=== PATIENT | female | born 1990 | race Caucasian/White ===

== ENCOUNTER 2017-03-05 07:56 | Day surgery (SDC) | payer BC, MEDICAID ==
[2017-03-01 10:22] VITALS: BMI 35.4
[~2017-03-05 07:56] MED LIST: LACTATED RINGERS 1,000 ML IV SCH; LIDOCAINE 1% 20 ML VIAL (10MG/ML) FOR IV START INTRADERMA PRN
[2017-03-05 08:33] VITALS: TEMP 99.6
[2017-03-05] MEDS ORDERED: LIDOCAINE 1% INJ 10MG/ML (20 ML MDV) ONE (08:55)
[2017-03-05] MEDS ORDERED: fentaNYL (PF) 50 MCG/ML 2 ML AMP ONE (08:55)
[2017-03-05] MEDS ORDERED: PROPOFOL 10 MG/ML 20 ML VIAL IV ONE (08:55)
--- NOTE | 2017-03-05 09:23 | P.PCN ---
Date of Procedure: 03/05/17 Preoperative Diagnosis: blood per rectum Postoperative Diagnosis: Internal hemorrhoids/possible rectal polypoid lesion Procedure(s) Performed: Colonoscopy Anesthesia: MAC Surgeon: Cassandra Acosta Estimated Blood Loss (ml): 0 IV fluids (ml): 500 Pathology: none sent Condition: stable Disposition: PACU Indications for Procedure: Blood per rectum Operative Findings: Large internal hemorrhoids/possible rectal polyp anterior location, external anterior and posterior skin tags rectal Description of Procedure: Patient was taken to the endoscopy suite and following sedation rectal exam was performed. Patient was noted to have anterior and posterior external skin tags. On rectal examination a polypoid-like lesion was noted to palpation. The colonoscope was introduced was passed through the anus into the rectum. Was passed through the sigmoid colon up to the splenic flexure transverse colon hepatic flexure right colon down to the area of the cecum. Circumferential observation mucosa did not reveal any lesions of concern in the cecum or right colon. No lesions of concern were noted in the transverse colon. As the scope was withdrawn no lesions of concern were noted in the left colon or sigmoid colon. The scope was brought down into the rectum where it was retroflexed. What appeared to be large internal hemorrhoids were identified. The scope was withdrawn and plan rectal examination noted that the area of concern was in the anterior perianal area. This was not felt to be conducive to removal endoscopically. Approximately 6 minutes were taken to withdraw the scope from the cecum to the rectum. Impression/plan: 1. Anterior and posterior external skin perianal skin tags 2. Anterior polypoid perianal area Plan: 1. Plan on removal in the operating room of the area of concern/ hemorrhoidectomy possible polypoid lesion removal
--- NOTE | 2017-03-05 09:24 | P.DS ---
Providers Attending physician: Cassandra Acosta Primary care physician: Malinda Bob MD Plan - Discharge Summary Discharge Medication List Biotin 5,000 mcg PO DAILY 03/01/17 [History] Cyanocobalamin [Vitamin B-12] 500 mcg PO DAILY 03/01/17 [History] buPROPion HCL [Wellbutrin SR] 150 mg PO DAILY 03/01/17 [History] Follow up Appointment(s)/Referral(s): Cassandra Acosta MD [STAFF PHYSICIAN] - 1 Week Patient Instructions/Handouts: *Surgery [facility] - (Anesthesia) Endoscopy Discharge Instructions, Colonoscopy (DC), Diverticulosis (DC), Diverticulosis Diet (GEN) Activity/Diet/Wound Care/Special Instructions: REST TODAY, NO DRIVING, DRINK LOTS OF FLUIDS Discharge Disposition: HOME SELF-CARE
[2017-03-05 10:04] VITALS: BP 121/71; PULSE 72; RESP 18
== END 2017-03-05 10:08 | disposition home or self-care (01) ==
LOC: ORWHC2ENDO 07:56
PROVIDERS: ATTEND Surgery
DX: Z12.11 Encounter for screening for malignant neoplasm of colon (principal); K64.8 Other hemorrhoids; K64.4 Residual hemorrhoidal skin tags; F32.9 Major depressive disorder, single episode, unspecified; Z79.899 Other long term (current) drug therapy; Z88.0 Allergy status to penicillin; Z87.891 Personal history of nicotine dependence
CPT/HCPCS: 81025; J2001; J3010; J2704; G0121

== ENCOUNTER 2017-03-26 10:03 | Observation (INO) | payer MEDICAID ==
[2017-03-21 14:31] VITALS: BMI 35.4
[~2017-03-26 10:03] MED LIST changes: +DEXAMETHASONE SOD PHOSPHATE 10 MG/ML 1 ML VIAL IV ONE; +HEPARIN SODIUM,PORCINE 5,000 UNIT/ML 1 ML VIAL SQ ONE; -LIDOCAINE 1% 20 ML VIAL (10MG/ML) FOR IV START INTRADERMA PRN; +MIDAZOLAM 2 MG/2 ML VIAL IV PRN; +Pre Op ABX Message 1 EACH MISC MISCELLANE ONE; +SCOPOLAMINE 1.5MG/72HR PATCH TRANSDERM ONE
[2017-03-26 10:19] VITALS: RESP 16
[2017-03-26] MEDS ORDERED: NA PHOS,M-B/NA PHOS,DI-BA 133 ML ENEMA RECTAL ONE (10:30)
[2017-03-26] MEDS: ONDANSETRON 4 MG/2 ML VIAL IVP ONE ×2 (10:54→13:21)
[2017-03-26] MEDS ORDERED: MIDAZOLAM 2 MG/2 ML VIAL ONE (11:14)
[2017-03-26] MEDS ORDERED: PROPOFOL 10 MG/ML 20 ML VIAL IV ONE (11:14)
[2017-03-26] MEDS ORDERED: SUCCINYLCHOLINE CHLORIDE 100 MG/5 ML SYR IV ONE (11:14)
[2017-03-26] MEDS ORDERED: fentaNYL (PF) 50 MCG/ML 2 ML AMP ONE (11:14)
[2017-03-26] MEDS ORDERED: LIDOCAINE 1% INJ 10MG/ML (20 ML MDV) ONE (11:14)
[2017-03-26] MEDS ORDERED: SODIUM CHLORIDE 0.9% 50 ML with CLINDAMYCIN 600 MG IV ONE ×2 (11:29)
[2017-03-26] MEDS ORDERED: LACTATED RINGERS 1,000 ML IV ONE ×3 (11:54→14:52)
--- NOTE | 2017-03-26 12:04 | P.OP ---
Date of Procedure: 03/26/17 Preoperative Diagnosis: Symptomatic hemorrhoids with prominent Anal polyps Postoperative Diagnosis: Same Procedure(s) Performed: Hemorrhoidectomy. Of diana anal polyps Implants: Anesthesia: VICKYA Surgeon: Cassandra Acosta Estimated Blood Loss (ml): 5 IV fluids (ml): 900 Pathology: other (Left anterior hemorrhoidal tissue removed with a right anterior polypoid lesion in posterior hemorrhoidectomy and anal polyp removed) Condition: stable Disposition: PACU Indications for Procedure: blood per rectum Operative Findings: The left anterior enlarged hemorrhoids with a right anterior hemorrhoid and enlarged anal polypoid lesion and prominent posterior hemorrhoid and anal polyp Description of Procedure: Patient was taken to the operating room and following induction of general anesthesia she was placed in a jackknife position. The perianal area was prepped and draped with bilateral been. . A Ogden retractor was used to evaluate the perianal area. The patient was noted to have 2 large perianal polypoid lesions as well as a posterior and left lateral prominent hemorrhoidal complexes. The posterior complex was addressed initially. A hemostat was placed on the suture was placed. The mucosa was scored and the polyp and hemorrhoidal complexes lifted from the internal sphincter. The incision was then closed using a Vicryl suture. This was repeated for the right anterior lateral hemorrhoidal complex was a large polypoid lesion at this site as well. A suture was placed on the apex of the mucosa was scored and the complexes lifted off of the internal sphincter and removed using Harmonic scalpel skin was prepared mucosa was closed using a Vicryl suture. This was completed for the left anterior hemorrhoidal complex. At this time it is not a second polypoid lesion. The hemostat was placed on the apex of the lesion mucosa was scored and the hemorrhoid was lifted off of the internal sphincter mechanism and the lesion was removed using the Harmonic scalpel. The mucosa was closed using a Vicryl suture. At the termination of the procedure there was no evidence of bleeding patient tolerated procedure in stable condition all instrument and sponge counts were correct at the end of the procedure. A Vaseline gauze was placed in the anal canal.
--- NOTE | 2017-03-26 12:07 | P.DS ---
Providers Attending physician: Cassandra Acosta Primary care physician: Reddy Pelaez Plan - Discharge Summary New Discharge Prescriptions: HYDROcodone/APAP 5-325MG [Boyers 5] 1 - 2 each PO Q4H PRN #20 tab PRN Reason: Pain Discharge Medication List Biotin 5,000 mcg PO DAILY 03/01/17 [History] Cyanocobalamin [Vitamin B-12] 500 mcg PO DAILY 03/01/17 [History] buPROPion HCL [Wellbutrin SR] 150 mg PO DAILY 03/01/17 [History] HYDROcodone/APAP 5-325MG [Boyers 5] 1 - 2 each PO Q4H PRN #20 tab 03/26/17 [Rx] Follow up Appointment(s)/Referral(s): Cassandra Acosta MD [STAFF PHYSICIAN] - 1 Week Activity/Diet/Wound Care/Special Instructions: do not drive while taking pain medication do not drive until seen by Dr. Victor Hugo haas bid Discharge Disposition: HOME SELF-CARE
[2017-03-26] MEDS: HYDROmorphone 1 MG/ML 1 ML SYRINGE IVP PRN ×4 (12:30→12:57)
[2017-03-26 15:21] LABS: Glucose,Whole Blood 142 mg/dL (75-99)
[2017-03-26] MEDS ORDERED: NALOXONE 0.4 MG/ML 1 ML VIAL IV PRN (15:36)
[2017-03-26] MEDS ORDERED: ONDANSETRON 4 MG/2 ML VIAL IVP PRN (15:36)
--- NOTE | 2017-03-26 15:36 | P.GSHP ---
History of Present Illness H&P Date: 03/26/17 Chief Complaint: Rapid heart rate in feeling numbness and tingling in arms and legs Patient is a 27-year-old white female who is status post hemorrhoidectomy earlier today. Postprocedure the patient stated she was feeling like her heart was racing and was noted to be approximately 120 and additionally she was feeling some numbness and tingling in her arms were placed down in her legs from her knees down. The patient underwent the hemorrhoidectomy secondary to blood per rectum. She had undergone a prior colonoscopy was noted to have anal polyps as well as hemorrhoids. The operative procedure was without incident. In the recovery room again the patient noted that she was lightheaded and complain of some rapid heart rate and tingling in her upper and lower extremities. Past surgical history: Colonoscopy Past medical history: Depression - Constitutional Constitutional: Reports as per HPI - Cardiovascular Cardiovascular: Reports as per HPI - Respiratory Respiratory: Reports as per HPI - Gastrointestinal Gastrointestinal: Reports as per HPI - Psychiatric Psychiatric: Reports as per HPI, Reports depression Past Medical History Past Medical History: No Reported History Additional Past Medical History / Comment(s): HEMMORHOIDS, RECTAL POLYP History of Any Multi-Drug Resistant Organisms: None Reported Past Surgical History: No Surgical Hx Reported Additional Past Surgical History / Comment(s): COLONOSCOPY Past Anesthesia/Blood Transfusion Reactions: No Reported Reaction Past Psychological History: Depression Smoking Status: Former smoker Past Alcohol Use History: None Reported Past Drug Use History: None Reported - Past Family History Mother Family Medical History: No Reported History Medications and Allergies Home Medications Medication Instructions Recorded Confirmed Type Biotin 5,000 mcg PO DAILY 03/01/17 03/26/17 History Cyanocobalamin [Vitamin B-12] 500 mcg PO DAILY 03/01/17 03/26/17 History buPROPion HCL [Wellbutrin SR] 150 mg PO DAILY 03/01/17 03/26/17 History Allergies Allergy/AdvReac Type Severity Reaction Status Date / Time Penicillins Allergy Rash/Hives Verified 03/26/17 10:21 Surgical - Exam Vital Signs Temp Pulse Resp BP Pulse Ox 99.8 F H 93 16 132/71 97 03/26/17 10:03/26/17 10:03/26/17 10:03/26/17 10:03/26/17 10:17 - General Mild anxiety - Eyes normal ocular movement - ENT normal pinna, normal nares, normal mucosa, no hearing loss - Neck no masses, trachea midline, no lymphadectomy, no venous distension - Respiratory normal expansion, normal respiratory effort, clear to auscultation - Cardiovascular Rhythm: regular Heart Sounds: normal: S1, S2 - Abdomen Abdomen: soft, bowel sounds - Rectum Dressing in place clean and dry - Psychiatric oriented to time, oriented to person, oriented to place, speech is normal Results - Labs Abnormal Lab Results - Last 24 Hours (Table) 03/26/17 Range/Units 15:17 POC Glucose (mg/dL) 142 H (75-99) mg/dL Assessment and Plan Plan: Impression/plan: 1. 27-year-old white female status post hemorrhoidectomy/excision of rectal polyps 2. Postoperative tachycardia with sensation of numbness and tingling in her upper and lower extremities Plan: 1. Case discussed with Dr. Reyes/she will follow with us 2. Will admit to observation and recheck electrolytes B12 magnesium 3. CBC
[2017-03-26 16:02] LABS: Basophils % (A) 0 %; CHCM 34.7; Eosinophils % (A) 0 %; HCT 40.8 % (34.0-46.0); HDW 2.31; HGB 13.6 gm/dL (11.4-16.0); Luc # (Auto) 0.02; Luc % (Auto) 0; Lymphocytes # (A) 0.4 k/uL (1.0-4.8); Lymphocytes % (A) 4 %; MCH 30.9 pg (25.0-35.0); MCHC 33.4 g/dL (31.0-37.0); MCV 92.4 fL (80.0-100.0); Mean Platelet Volume 6.9; Monocytes # (A) 0.1 k/uL (0-1.0); Monocytes % (A) 1 %; Neutrophils # (A) 10.5 k/uL (1.3-7.7); Neutrophils % (A) 95 %; RBC 4.41 m/uL (3.80-5.40); RDW 12.3 % (11.5-15.5); WBC (Perox) 10.64
[2017-03-26 16:12] LABS: Anion Gap 13 mmol/L; Blood Urea Nitrogen 11 mg/dL (7-17); Calcium 9.2 mg/dL (8.4-10.2); Carbon Dioxide 23 mmol/L (22-30); Chloride 107 mmol/L (98-107); Glucose 135 mg/dL (74-99); Magnesium 1.9 mg/dL (1.6-2.3); Non-African American GFR(MDRD) >60 (>60 ml/min/1.73 sqM); Sodium 143 mmol/L (137-145)
[2017-03-26 17:01] LABS: Vitamin B12 641 pg/mL (239-931)
[2017-03-26] MEDS: HYDROcodone/APAP 5-325MG 1 EACH TAB PO PRN ×2 (17:32→22:13)
[2017-03-26] MEDS: DEXTROSE 5%-0.45% NACL 1,000 ML IV SCH ×2 (17:34→21:19)
[2017-03-26] MEDS ORDERED: RX INFO: IV CONTRAST WAS GIVEN 1 EACH MISC MISCELLANE PRN (19:09)
--- NOTE | 2017-03-26 20:21 | CT ---
EXAMINATION TYPE: CT brain wo/w con DATE OF EXAM: 03/26/2017 8:16 PM COMPARISON: NONE HISTORY: Surgical procedure today. Numbness to bilateral upper and lower extremities after. Family hi story of aneurysm with stroke. Arnold chiarri malformation. CT DLP: 2108.80 mGycm Automated exposure control for dose reduction was used. CONTRAST: CT scan of the head is performed without and with IV Contrast, patient injected with 100 mL of Omnipa que 300. FINDINGS: The ventricles and sulci appear normal. There is no mass effect nor midline shift. There is no sign o f intracranial hemorrhage. The calvarium appears intact. There is no pathologic enhancement. The post erior fossa structures appear normal. IMPRESSION: Normal head CT scan.
[2017-03-26] MEDS: FAMOTIDINE 20 MG TAB PO SCH (20:50)
--- NOTE | 2017-03-26 20:54 | P.CONS ---
History of Present Illness - Reason for Consult Consult date: 03/26/17 paresthesias hand and foot, bilateral Requesting physician: Cassandra Acosta - History of Present Illness This s a pleasant 27 year old cauc[place] female, patient of dr Bob, with known history of hemorrhoids ad depression who underwent uncomplicated hemorrhoid surgery by Dr Bernarda Acosta today 03/26. She felt well prior to surgery however upon post-operative monitoring she complained of bilateral hand and foot sensory paresthesia and bilateral arm and foot weakness/heaviness and racing heart with palpitations without chest pain. patient felt light headed without any other motor and speech abnormality. She had prior history of palpitations in past and was seen by Dr Hollis with an echocardiogram 5 years prior and was found nothing wrong in particular, Patient. had previous syncopal episodes in past with no etiologies , however no tilt table or eeg test was done. patient relates to heat intolerance but is not on any stimulants or decongestants recently, she had similar episodes of this paresthesias and motor weakness of arms and foot bilaterally however this episodes are rare last attack was over 1 year ago until this event after her hemorrhoid surgery, SHe received versed, propofol, general anesthetic, dilaudid during the perioperative phase. Ekg was performed, telemonitor strip showed sinus tach hr 105-110. Dr Bernarda Acosta notified me of her symptoms and we decided to keep the patient in for observation, we were consulted for the above symptoms, Electrolyte, magnesium and b12 thyroid panel and serum metanephrines panel was requested, ct of the brain will be done with contrast studies to evaluate a preexisting Arnold Chiarri Malformation, patient will be hydrated in the process along with neurochecks, cardiac monitoring. Review of Systems Constitutional: Reports as per HPI, Denies anorexia, Denies chills, Denies chronic headaches, Denies chronic pain, Denies daytime sleepiness, Denies fatigue, Denies fever, Denies lethargy, Denies malaise, Denies night sweats, Denies poor appetite, Denies sweats, Denies weakness, Denies weight gain, Denies weight loss Ears, nose, mouth and throat: Reports as per HPI, Denies ant. neck pain, Denies bleeding gums, Denies dental pain, Denies dysphagia, Denies epistaxis, Denies headache, Denies hoarseness, Denies mouth pain, Denies nasal congestion, Denies nasal discharge, Denies neck fullness/pressure, Denies neck lump, Denies nose pain, Denies odynophagia, Denies post-nasal drip, Denies sinus pain, Denies sinus pressure, Denies swelling in mouth, Denies swelling in throat, Denies sore throat, Denies vertigo, Denies voice changes Cardiovascular: Reports as per HPI, Reports lightheadedness, Reports rapid heart beat, Denies chest pain, Denies claudication, Denies decreased exercise tolerance, Denies dyspnea on exertion, Denies edema, Denies high blood pressure , Denies irregular heart beat, Denies leg edema, Denies orthopnea, Denies palpitations, Denies paroxysmal nocturnal dyspnea, Denies phlebitis, Denies shortness of breath, Denies syncope Respiratory: Reports as per HPI, Denies congestion, Denies cough, Denies cough with sputum, Denies dyspnea, Denies excessive sputum, Denies hemoptysis, Denies home oxygen, Denies pain, Denies pain on inspiration, Denies pleurisy, Denies respiratory infections, Denies sleep apnea, Denies snoring, Denies wheezing Gastrointestinal: Reports as per HPI, Denies abdominal pain, Denies belching, Denies bloating, Denies BRBPR, Denies change in bowel habits, Denies coffee ground emesis, Denies constipation, Denies diarrhea, Denies dyspepsia, Denies early satiety, Denies excessive gas, Denies heartburn, Denies hematemesis, Denies hematochezia, Denies indigestion, Denies jaundice, Denies lactose intolerance, Denies loss of appetite, Denies melena, Denies nausea, Denies vomiting Genitourinary: Reports as per HPI, Denies abnormal vaginal bleeding, Denies decreased libido, Denies difficulty conceiving, Denies difficulty voiding, Denies dysmenorrhea, Denies dyspareunia, Denies dysuria, Denies flank pain, Denies genital sores, Denies hematuria, Denies hot flashes, Denies incomplete emptying, Denies kidney stones, Denies menorrhagia, Denies mixed incontinence, Denies nocturia, Denies pelvic pain, Denies post void dribbling, Denies , Denies prolapse symptoms, Denies stress incontinence, Denies urge incontinence , Denies urgency, Denies urinary frequency, Denies vaginal discharge, Denies vaginal dryness, Denies vaginal itching, Denies vaginal odor Musculoskeletal: Reports as per HPI, Denies arm numbness/tingling, Denies atrophy, Denies fractures, Denies frequent falls, Denies gait dysfunction, Denies hot joints, Denies leg numbness/tingling, Denies limitation of motion, Denies loss of height, Denies low back pain, Denies morning stiffness, Denies muscle cramps, Denies muscle weakness, Denies myalgias, Denies neck pain, Denies neck stiffness, Denies prior amputations, Denies redness of joints, Denies shooting arm pain, Denies shooting leg pain Integumentary: Reports as per HPI Neurological: Reports as per HPI, Reports motor disturbance, Reports paresthesias, Reports tingling, Denies aphasia, Denies ataxia, Denies balance difficulties, Denies burning pain, Denies change in mentation, Denies change in smell/taste, Denies change in speech, Denies confusion, Denies convulsions, Denies double vision, Denies gait dysfunction, Denies head injury, Denies headaches, Denies hearing difficulties, Denies lack of coordination, Denies loss of vision, Denies memory loss, Denies migraines, Denies numbness, Denies paralysis, Denies seizures, Denies sensory deficit, Denies spasticity, Denies syncope, Denies tic, Denies transient paralysis, Denies tremors, Denies vertigo , Denies weakness, Denies visual changes Psychiatric: Reports as per HPI, Denies anhedonia, Denies anxiety, Denies anxiety attacks, Denies change in appetite, Denies change in libido, Denies change in sleep habits, Denies confusion, Denies depression, Denies difficulty concentrating, Denies disorientation, Denies hallucinations, Denies hopelessness , Denies hypersomnia, Denies insomnia, Denies irritability, Denies memory loss, Denies mood swings, Denies paranoia, Denies sadness/tearfulness, Denies sleep disturbances, Denies suicidal ideation Endocrine: Reports as per HPI, Denies cold intolerance, Denies deepening of the voice, Denies excessive sweating, Denies excessive thirst, Denies fatigue, Denies flushing, Denies heat intolerance, Denies high blood sugars, Denies increase in ring/shoe/hat size, Denies low blood sugars, Denies nocturia, Denies palpitations, Denies polydipsia, Denies polyphagia, Denies polyuria, Denies proptosis, Denies recent glucocorticoid use, Denies thyroid mass, Denies weight change Hematologic/Lymphatic: Reports as per HPI, Denies easy bleeding, Denies easy bruising, Denies lymphadenopathy, Denies lymphedema, Denies thrombophilia Allergic/Immunologic: Reports as per HPI, Denies allergic rhinitis, Denies anaphylaxis, Denies angioedema, Denies gluten intolerance, Denies persistent infections, Denies seasonal allergies, Denies urticaria, Denies wheezing Past Medical History Past Medical History: No Reported History Additional Past Medical History / Comment(s): HEMMORHOIDS, RECTAL POLYP History of Any Multi-Drug Resistant Organisms: None Reported Past Surgical History: No Surgical Hx Reported Additional Past Surgical History / Comment(s): COLONOSCOPY Past Anesthesia/Blood Transfusion Reactions: No Reported Reaction Past Psychological History: Depression Smoking Status: Former smoker Past Alcohol Use History: None Reported Past Drug Use History: None Reported - Past Family History Mother Family Medical History: No Reported History, Asthma Father Family Medical History: Neurologic Disorder (brain aneurysm) Brother(s) Family Medical History: Neurologic Disorder (Flor sydnrome) Son(s) Family Medical History: No Reported History Medications and Allergies Home Medications Medication Instructions Recorded Confirmed Type Biotin 5,000 mcg PO DAILY 03/01/17 03/26/17 History Cyanocobalamin [Vitamin B-12] 500 mcg PO DAILY 03/01/17 03/26/17 History buPROPion HCL [Wellbutrin SR] 150 mg PO DAILY 03/01/17 03/26/17 History Allergies Allergy/AdvReac Type Severity Reaction Status Date / Time Penicillins Allergy Rash/Hives Verified 03/26/17 10:21 Physical Exam Vitals: Vital Signs Temp Pulse Resp BP Pulse Ox 03/26/17 15:53 106 H 16 141/72 97 03/26/17 15:33 122 H 16 142/67 96 03/26/17 14:55 111 H 16 120/65 94 L 03/26/17 14:09 107 H 16 146/65 96 03/26/17 13:49 110 H 16 139/63 98 03/26/17 13:23 87 16 138/60 97 03/26/17 13:10 99 16 144/67 97 03/26/17 13:01 79 16 120/57 99 03/26/17 12:50 71 16 132/63 98 03/26/17 12:35 72 16 133/66 99 03/26/17 12:19 97.3 F L 89 16 138/61 99 03/26/17 10:17 99.8 F H 93 16 132/71 97 Intake and Output 03/26/17 03/26/17 03/26/17 06:59 14:59 22:59 Intake Total 1953 Output Total 5 Balance 1948 Intake: IV 1953 Output: Estimated Blood Loss - Constitutional General appearance: cooperative, no acute distress - EENT Eyes: anicteric sclerae, EOMI, dentition normal, normal appearance ENT: no hard of hearing, hearing grossly normal, NA/AT, normal oropharynx, no other, no pharyngeal erythema, no thrush, no tonsillar exudates, no tonsillar swelling - Neck Neck: no lymphadenopathy, normal ROM, no other, no rigidity, no stridor, no thyromegaly - Respiratory Respiratory: bilateral: CTA, negative: diminished, dullness, rales, rhonchi - Cardiovascular Rhythm: regular Heart sounds: normal: S1, S2 Abnormal Heart Sounds: no systolic murmur, no diastolic murmur, no rub, no S3 Gallop, no S4 Gallop, no click, no other - Gastrointestinal General gastrointestinal: normal bowel sounds, soft - Integumentary Integumentary: normal, normal turgor - Neurologic Neurologic: CNII-XII intact - Musculoskeletal Musculoskeletal: gait normal, strength equal bilaterally - Psychiatric Psychiatric: A&O x's 3, appropriate affect, intact judgment & insight Results CBC & Chem 7: 03/26/17 15:44 03/26/17 15:44 Labs: Abnormal Lab Results - Last 24 Hours (Table) 03/26/17 03/26/17 Range/Units 15:17 15:44 WBC 11.0 H (3.8-10.6) k/uL Neutrophils # 10.5 H (1.3-7.7) k/uL Lymphocytes # 0.4 L (1.0-4.8) k/uL POC Glucose (mg/dL) 142 H (75-99) mg/dL Laboratory Results WBC 11.0 k/uL (3.8-10.6) H 03/26/17 15:44 RBC 4.41 m/uL (3.80-5.40) 03/26/17 15:44 Hgb 13.6 gm/dL (11.4-16.0) 03/26/17 15:44 Hct 40.8 % (34.0-46.0) 03/26/17 15:44 MCV 92.4 fL (80.0-100.0) 03/26/17 15:44 MCH 30.9 pg (25.0-35.0) 03/26/17 15:44 MCHC 33.4 g/dL (31.0-37.0) 03/26/17 15:44 RDW 12.3 % (11.5-15.5) 03/26/17 15:44 Plt Count 277 k/uL (150-450) 03/26/17 15:44 Neutrophils % 95 % 03/26/17 15:44 Lymphocytes % 4 % 03/26/17 15:44 Monocytes % 1 % 03/26/17 15:44 Eosinophils % 0 % 03/26/17 15:44 Basophils % 0 % 03/26/17 15:44 Neutrophils # 10.5 k/uL (1.3-7.7) H 03/26/17 15:44 Lymphocytes # 0.4 k/uL (1.0-4.8) L 03/26/17 15:44 Monocytes # 0.1 k/uL (0-1.0) 03/26/17 15:44 Eosinophils # 0.0 k/uL (0-0.7) 03/26/17 15:44 Basophils # 0.0 k/uL (0-0.2) 03/26/17 15:44 Sodium 143 mmol/L (137-145) 03/26/17 15:44 Potassium 4.0 mmol/L (3.5-5.1) 03/26/17 15:44 Chloride 107 mmol/L (98-107) 03/26/17 15:44 Carbon Dioxide 23 mmol/L (22-30) 03/26/17 15:44 Anion Gap 13 mmol/L 03/26/17 15:44 BUN 11 mg/dL (7-17) 03/26/17 15:44 Creatinine 0.80 mg/dL (0.52-1.04) 03/26/17 15:44 Est GFR (MDRD) Af Amer >60 (>60 ml/min/1.73 sqM) 03/26/17 15:44 Est GFR (MDRD) Non-Af >60 (>60 ml/min/1.73 sqM) 03/26/17 15:44 Glucose 135 mg/dL (74-99) H 03/26/17 15:44 POC Glucose (mg/dL) 142 mg/dL (75-99) H 03/26/17 15:17 POC Glu [employer] Claire Sadler 03/26/17 15:17 Calcium 9.2 mg/dL (8.4-10.2) 03/26/17 15:44 Magnesium 1.9 mg/dL (1.6-2.3) 03/26/17 15:44 Vitamin B12 641 pg/mL (239-931) 03/26/17 15:44 TSH 1.130 mIU/L (0.465-4.680) 03/26/17 15:44 Assessment and Plan Plan: 1. bilateral upper extremity and lower extremity weakness and paresthesias mainly involving arms and foot, with known recurrence of unknown etiology, this episode occurred after hermorrhoid surgery after receiving general anesthetic and premedication with versed, and dilaudid, also after completing 2 enemas prior to surgery. intraspinal volume depletion can be expected causing symptoms especially with arnold chiarri malformation, Ct of the brain with and without contrast will be done to evaluate this further. Maintain iv hydration. labs will be monitored including electrolytes , b12 levels and magnesium levels 2. palpitation and recurrent tachycardia, cannot rule out POTS sydnrome. consult with cardiology, will need full eval to include tilt table test as out patient, echocardiogram was performed in the passt without any structural abnormalities, followe by dr Hollis in past. patient will be hydrated. serum mentanephrines and thyroid panel will be evaluated 3. hemorrhoid surgery 03/26/2017, patient will be given stool softerners, no ongoing blood loses today 4. history of syncope in past, had some work-up all of which came out to be benign, however completeness of investigations cannot be confirmed Thank you Dr Acosta for allowing us to participate in the care of our patient. We will follow her with you during this hosptalization and will make recommendations to her care based on her clinical progress
[2017-03-26] MEDS: SODIUM CHLORIDE 0.9% 1,000 ML IV SCH (21:18)
[2017-03-26] MEDS: DOCUSATE 100 MG CAP PO SCH (21:39)
[2017-03-27] MEDS: HYDROmorphone 1 MG/ML 1 ML SYRINGE IV PRN ×3 (02:03→06:07)
[2017-03-27 08:31] VITALS: BP 126/59; PULSE 68; TEMP 98.6
[2017-03-27] MEDS: DOCUSATE 100 MG CAP PO SCH (08:39)
[2017-03-27] MEDS: FAMOTIDINE 20 MG TAB PO SCH (08:39)
[2017-03-27] MEDS: HYDROcodone/APAP 5-325MG 1 EACH TAB PO PRN (08:39)
[2017-03-27] MEDS ORDERED: buPROPion SR 150 MG TABLET.ER PO SCH (09:00)
[2017-03-27] MEDS ORDERED: CYANOCOBALAMIN 500 MCG TAB PO SCH (09:00)
--- NOTE | 2017-03-27 09:34 | CONS ---
DATE OF CONSULTATION: Meg Washburn is a 27-year-old female who underwent hemorrhoid surgery and postanesthesia she developed palpitations and tachycardia. A 12-lead ECG shows sinus tachycardia. There are no other abnormalities noted and she was admitted postoperatively. She underwent a brain CT because she has some paresthesias and neurologic symptoms. The brain CT did not show any abnormalities either. In the interval, TSH and metanephrines, etc. were sent by the medical team quite appropriately. PAST HISTORY: She has a history of palpitations and syncope when she stands. She also has a history of sudden onset of palpitations while sitting, driving or sitting in a car. She has a history of hypertension during and at that time she had pounding and palpitations. She saw Dr. Claudia Simmons about 5 years back and was told that there are no major problems noted. On detailed questioning, she does have a broad balance of palpitations off and on and she also has symptoms during standing which appear to be 2 totally different things/symptomatologies. Her medication list was reviewed and is documented in the chart. Allergies are reviewed. REVIEW OF SYSTEMS: Currently no fever, chills. The patient denies any chest discomfort. No dizziness, no lightheadedness. No fever, chills, or rigors. No cough, no expectoration. No nausea, vomiting or diarrhea. No hematuria or dysuria. No strokes or seizures. No skin lesions. No musculoskeletal complaints. On examination, her blood pressure is 126/59 mmHg, respirations are normal. Heart rates is in the 60s, temperature 98.6 degrees Fahrenheit. Head and neck examination is normal. Heart sounds are normal. No murmurs or gallops. Breath sounds are normal. No rhonchi, no crackles. Abdomen is soft, nontender. Extremities are warm. No edema. IMPRESSION: Episodes of palpitations, sinus tachycardia. Past history of syncope. Past history of palpitations with sudden onset. Labs are reviewed. TSH is normal. ( ) are pending. White count is mildly elevated. SUGGEST: From a cardiac standpoint the patient may go home at this point. Other than IV hydration I would suggest no further work-up. This is not the time to do it. I will see her as an outpatient in about 6 weeks or so and then evaluate her for neurocardiogenic syncope versus partial tachycardia syndrome, but her history of palpitations with sudden onset while sitting definitely needs to be explored. I will do so after about 6 weeks or so and I will make the appointment.
--- NOTE | 2017-03-27 09:52 | P.DS ---
Providers Date of admission: 03/27/17 06:36 Expected date of discharge: 03/27/17 Attending physician: Cassandra Acosta Consults: 03/26/17 15:39 Consult Physician Routine Consulting Provider: Mariama Gold Consult Reason/Comments: Medical management Do you want consulting provider notified?: Yes 03/26/17 20:58 Consult Physician Routine Consulting Provider: Kerwin Grajeda Consult Reason/Comments: recurrent tachycardia prior syncope history Do you want consulting provider notified?: Yes, Notify in am Primary care physician: [facility] Course: 27-year-old female presented on elective basis to undergo uncomplicated hemorrhoidectomy by Dr. Torres from March 26. Postprocedure patient reportedly stated that she was feeling like her heart was racing was out chest pain. Patient has a history of having previous syncopal episode unclear etiology. 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 The discharge was held on the . Cardiology consultation requested. Cardiology indicated no further cardiac workup at this time. Additionally the patient was seen by medicine service Dr. gold. From all consulting physicians patient was felt to be appropriate to be discharged home. Labs were reviewed all within normal limits. Os procedure patient had received IV hydration. There was no dizziness or lightheadedness and no chest pain or heart palpitation. Impression discharge diagnosis March 26 uncomplicated hemorrhoidectomy History of a syncopal in the past workup benign no acute findings postop tachycardia resolved The above dictated assessment and findings were discussed with dr shin . Impression and the plan of care have been dictated as directed. Vianca Barnard nurse practitioner acting as a scribe for dr shin Plan - Discharge Summary New Discharge Prescriptions: HYDROcodone/APAP 5-325MG [Garfield 5] 1 - 2 each PO Q4H PRN #20 tab PRN Reason: Pain Discharge Medication List Biotin 5,000 mcg PO DAILY 03/01/17 [History] Cyanocobalamin [Vitamin B-12] 500 mcg PO DAILY 03/01/17 [History] buPROPion HCL [Wellbutrin SR] 150 mg PO DAILY 03/01/17 [History] HYDROcodone/APAP 5-325MG [Garfield 5] 1 - 2 each PO Q4H PRN #20 tab 03/26/17 [Rx] Follow up Appointment(s)/Referral(s): Cassandra Acosta MD [STAFF PHYSICIAN] - 04/05/17 10:00 am Patient Instructions/Handouts: *[facility] - ([facility]) Hemorrhoidectomy Post-Op Instructions, *[facility] - (Anesthesia) Discharge Instructions Outpatient Surgery Activity/Diet/Wound Care/Special Instructions: do not drive while taking pain medication do not drive until seen by Dr. Victor Hugo haas bid
[2017-03-27] MEDS: SODIUM CHLORIDE 0.9% 1,000 ML IV SCH (10:29)
== END 2017-03-27 11:25 | disposition home or self-care (01) ==
LOC: OR 10:03 → 3OBS 15:58 → OR 03-27 06:35 → 3OBS 03-27 06:36
PROVIDERS: ADMIT Surgery; ATTEND Surgery
DX: I97.89 Other postprocedural complications and disorders of the circulatory system, not elsewhere classified (principal); R20.0 Anesthesia of skin; R20.2 Paresthesia of skin; R00.2 Palpitations; R00.0 Tachycardia, unspecified; R53.1 Weakness; K64.9 Unspecified hemorrhoids; K62.1 Rectal polyp; K62.0 Anal polyp; K64.5 Perianal venous thrombosis; F32.9 Major depressive disorder, single episode, unspecified; Z79.899 Other long term (current) drug therapy; Z88.0 Allergy status to penicillin; Z87.891 Personal history of nicotine dependence
CPT/HCPCS: 46999; 46922; 96361 ×2; 96374; 96375; 96376; 93005; 81025; 83835; 88304; 80048; 84443; 82607; 83735; 85025; 70470; G0378; J2250; J1644; J1100; S0106; J2405 ×2; J2001; J3010; J1170 ×2; Q9967; J0330; J2704

== ENCOUNTER → 2017-12-24 | Outpatient (CLI) | payer MEDICAID ==
--- NOTE | 2017-12-24 15:22 | US ---
EXAMINATION TYPE: US pelvic complete DATE OF EXAM: 12/24/2017 COMPARISON: 10/09/2017 CT CLINICAL HISTORY: 27-year-old female Z97.5 IUD placement. Patient states cramping and bleeding. TECHNIQUE: Transabdominal sonographic images of the pelvis were acquired. Date of LMP: patient states she does not have regular cycles Findings: Uterus: Anteverted measuring 9.4 x 4.0 x 5.3 cm Endometrial Stripe: 0.5 cm. The IUD appears appropriately situated along the uterine cavity. Right Ovary: 3.2 x 2.0 x 1.8 cm for a volume of 6.0 mL. Left Ovary: 2.8 x 1.8 x 1.7 cm for a volume of 4.5 mL. No evident adnexal abnormality or cul-de-sac free fluid. IMPRESSION: IUD appears appropriately situated along the uterine cavity. No specific abnormality seen on transabd ominal scanning.
== END | disposition home or self-care (01) ==
LOC: RADUSWWP 13:41
PROVIDERS: ATTEND Obstetrics & Gynecology
DX: R10.2 Pelvic and perineal pain (principal); Z97.5 Presence of (intrauterine) contraceptive device
CPT/HCPCS: 76856

== ENCOUNTER 2018-02-17 17:02 | Emergency (ER) | payer MEDICAID ==
[2018-02-17] MEDS ORDERED: SODIUM CHLORIDE 0.9% 1,000 ML IV STA ×2 (17:08)
[2018-02-17] MEDS ORDERED: MORPHINE SULFATE 4MG/4ML SYRG IV STA (17:08)
[2018-02-17] MEDS ORDERED: MORPHINE SULFATE 4MG/4ML SYRG IVP STA ×2 (17:14→18:04)
[2018-02-17] MEDS ORDERED: LORazepam 2 MG/ML INJ IV STA (17:14)
[2018-02-17] MEDS ORDERED: ONDANSETRON 4 MG/2 ML VIAL IVP STA (17:18)
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
--- NOTE | 2018-02-17 17:56 | XR ---
PROCEDURE: XR wrist complete LT, 3 views DATE AND TIME: 02/17/2018 5:46 PM REFERRING PHYSICIAN: Jonna Castro CLINICAL INDICATION: PH[facility], Pain TECHNIQUE: Department protocol. COMPARISON: None FINDINGS: There is no fracture or malalignment. The soft tissues are unremarkable. IMPRESSION: NO ACUTE PROCESS.
[2018-02-17 18:05] LABS: Basophils # (A) 0.1 k/uL (0-0.2); Basophils % (A) 1 %; Eosinophils # (A) 0.2 k/uL (0-0.7); Eosinophils % (A) 2 %; HCT 38.1 % (34.0-46.0); HGB 13.3 gm/dL (11.4-16.0); Lymphocytes # (A) 2.7 k/uL (1.0-4.8); Lymphocytes % (A) 34 %; MCH 30.3 pg (25.0-35.0); MCHC 34.9 g/dL (31.0-37.0); MCV 86.8 fL (80.0-100.0); Mean Platelet Volume 7.2; Monocytes # (A) 0.4 k/uL (0-1.0); Monocytes % (A) 5 %; Neutrophils # (A) 4.4 k/uL (1.3-7.7); Neutrophils % (A) 56 %; Platelet Count 261 k/uL (150-450); RBC 4.39 m/uL (3.80-5.40); WBC 7.9 k/uL (3.8-10.6)
[2018-02-17 18:15] LABS: Anion Gap 13 mmol/L; Blood Urea Nitrogen 15 mg/dL (7-17); Calcium 9.1 mg/dL (8.4-10.2); Carbon Dioxide 23 mmol/L (22-30); Chloride 107 mmol/L (98-107); Glucose 107 mg/dL (74-99); Potassium 3.9 mmol/L (3.5-5.1); Sodium 143 mmol/L (137-145)
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
[2018-02-17 19:16] VITALS: BP 140/64; PULSE 113; RESP 20; TEMP 98.8
== END 2018-02-17 19:19 ==
LOC: EC 17:02
DX: T23.212A Burn of second degree of left thumb (nail), initial encounter (principal); T23.272A Burn of second degree of left wrist, initial encounter; T21.12XA Burn of first degree of abdominal wall, initial encounter; T31.0 Burns involving less than 10% of body surface; F17.200 Nicotine dependence, unspecified, uncomplicated; Z88.0 Allergy status to penicillin; X15.8XXA Contact with other hot household appliances, initial encounter
CPT/HCPCS: 36415; 80048; 85025; 73110; 73130; 99284; 16020; 96374; 96375 ×2; 96376; 96361 ×2; J2060; J2405; J2270

== ENCOUNTER → 2018-11-25 | Outpatient (CLI) | payer MEDICAID ==
[2018-11-25 10:23] LABS: Basophils # (A) 0.1 k/uL (0-0.2); Basophils % (A) 1 %; Eosinophils # (A) 0.1 k/uL (0-0.7); Eosinophils % (A) 2 %; HCT 41.5 % (34.0-46.0); HGB 13.7 gm/dL (11.4-16.0); Lymphocytes # (A) 2.2 k/uL (1.0-4.8); Lymphocytes % (A) 36 %; MCH 30.2 pg (25.0-35.0); MCHC 33.1 g/dL (31.0-37.0); MCV 91.3 fL (80.0-100.0); Mean Platelet Volume 6.3; Monocytes # (A) 0.4 k/uL (0-1.0); Monocytes % (A) 6 %; Neutrophils # (A) 3.1 k/uL (1.3-7.7); Neutrophils % (A) 53 %; Platelet Count 262 k/uL (150-450); RBC 4.55 m/uL (3.80-5.40); RDW 12.1 % (11.5-15.5); WBC 5.9 k/uL (3.8-10.6)
[2018-11-25 17:49] LABS: Albumin 4.6 g/dL (3.80-4.90); Albumin/Globulin Ratio 2.3 (1.20-2.10); Anion Gap 7.3 mmol/L (4.00-12.00); Calcium 9.3 mg/dL (8.7-10.3); Carbon Dioxide 26.7 mmol/L (21.6-31.8); LDL Cholesterol,Calculated 101.2 mg/dL (0.0-131.0); Potassium 4.2 mmol/L (3.5-5.5); Total Bilirubin 0.4 mg/dL (0.2-1.2); Total Protein 6.6 g/dL (6.2-8.2); VLDL Calculation 20.8 mg/dL (5.00-40.00)
[2018-11-25 21:15] LABS: Egg White IgE <0.10 kU/L
[2018-11-25 22:52] LABS: Clam IgE <0.10 kU/L; Scallop IgE <0.10 kU/L; Shrimp IgE <0.10 kU/L; Walnut IgE (Food) <0.10 kU/L
[2018-11-25 22:53] LABS: Codfish IgE <0.10 kU/L; Peanut IgE <0.10 kU/L; Soybean IgE <0.10 kU/L
== END | disposition home or self-care (01) ==
LOC: LABWHC1 09:27
PROVIDERS: ATTEND Family Medicine
DX: Z00.00 Encounter for general adult medical examination without abnormal findings (principal); F32.9 Major depressive disorder, single episode, unspecified; F41.0 Panic disorder [episodic paroxysmal anxiety]; Z68.35 Body mass index [BMI] 35.0-35.9, adult
CPT/HCPCS: 36415; 80053; 80061; 82785; 84439; 84443; 85025; 86003

== ENCOUNTER → 2020-09-12 | Outpatient (CLI) | payer MEDICAID ==
[2020-09-12 13:15] LABS: Basophils # (A) 0.1 k/uL (0-0.2); Basophils % (A) 1 %; Eosinophils # (A) 0.1 k/uL (0-0.7); Eosinophils % (A) 2 %; HCT 41.3 % (34.0-46.0); HGB 14.1 gm/dL (11.4-16.0); Lymphocytes # (A) 2.3 k/uL (1.0-4.8); Lymphocytes % (A) 36 %; MCH 31.2 pg (25.0-35.0); MCHC 34.1 g/dL (31.0-37.0); MCV 91.3 fL (80.0-100.0); Mean Platelet Volume 6.9; Monocytes # (A) 0.4 k/uL (0-1.0); Monocytes % (A) 5 %; Neutrophils # (A) 3.5 k/uL (1.3-7.7); Neutrophils % (A) 55 %; Platelet Count 283 k/uL (150-450); RBC 4.53 m/uL (3.80-5.40); RDW 11.6 % (11.5-15.5); WBC 6.4 k/uL (3.8-10.6)
[2020-09-12 19:58] LABS: African American GFR (CKD) 98.1 (60.0-200.0); Albumin 4.5 g/dL (3.80-4.90); Albumin/Globulin Ratio 1.96 (1.60-3.17); Anion Gap 6.9 mmol/L (4.00-12.00); BUN/Creat Ratio 16.67 Ratio (12.00-20.00); Calcium 9.3 mg/dL (8.7-10.3); Carbon Dioxide 27.1 mmol/L (21.6-31.8); Globulin 2.3 g/dL (1.6-3.3); Non-African American GFR(CKD) 84.6 (60.0-200.0); Potassium 4.2 mmol/L (3.5-5.5); Total Bilirubin 0.5 mg/dL (0.2-1.2); Total Protein 6.8 g/dL (6.2-8.2)
[2020-09-12 19:59] LABS: Chol/HDL Ratio 3.76; LDL Cholesterol,Calculated 112.4 mg/dL (0.0-131.0); Magnesium 2.1 mg/dL (1.5-2.4); VLDL Calculation 14.6 mg/dL (5.00-40.00)
== END | disposition home or self-care (01) ==
LOC: LABWHC1 10:30
PROVIDERS: ATTEND Family Medicine
DX: Z00.00 Encounter for general adult medical examination without abnormal findings (principal); R00.2 Palpitations
CPT/HCPCS: 36415; 80053; 80061; 83735; 84439; 84443; 85025

== ENCOUNTER → 2020-09-15 | Outpatient (CLI) | payer MEDICAID | END | disposition home or self-care (01) | LOC: RADECHMAIN 12:28 | PROVIDERS: ATTEND Family Medicine | DX: R00.2 Palpitations (principal) | CPT/HCPCS: 93225; 93226 ==

== ENCOUNTER → 2020-10-10 | Outpatient (CLI) | payer MEDICAID ==
--- NOTE | 2020-10-10 10:52 | US ---
EXAMINATION TYPE: US gallbladder DATE OF EXAM: 10/10/2020 COMPARISON: US and CT 2017 CLINICAL HISTORY: R10.13 Epigastric pain. On/off epigastric pain x couple months EXAM MEASUREMENTS: Liver Length: 14.5 cm Gallbladder Wall: 0.1 cm CBD: 0.3 cm Right Kidney: 9.1 x 4.4 x 4.4 cm Pancreas: visualized portions wnl, limited by overlying midline bowel gas Liver: wnl Gallbladder: wnl Evidence for sonographic Knott's sign: no CBD: wnl Right Kidney: wnl IMPRESSION: No shadowing mobile gallstones or ultrasound evidence for acute cholecystitis. No signifi cant change from prior studies. No new or acute findings.
== END | disposition home or self-care (01) ==
LOC: RADUSWWP 08:50
PROVIDERS: ATTEND Family Medicine
DX: R10.13 Epigastric pain (principal); Z88.0 Allergy status to penicillin
CPT/HCPCS: 76705

== ENCOUNTER → 2020-11-17 | Outpatient (CLI) | payer MEDICAID | END | disposition home or self-care (01) | LOC: LABMAIN 10:49 | PROVIDERS: ATTEND Physician Assistant | DX: Z20.822 Contact with and (suspected) exposure to COVID-19 (principal) | CPT/HCPCS: 36415; 86769 ==

== ENCOUNTER 2021-02-09 12:46 | Emergency (ER) | payer MEDICAID ==
[2021-02-09] MEDS ORDERED: ACETAMINOPHEN TAB 500 MG TAB PO STA (12:58)
--- NOTE | 2021-02-09 13:04 | ED ---
General Adult HPI - General Chief complaint: Fever Stated complaint: cough/fever/wants BAM Time Seen by Provider: 02/09/21 12:50 Source: patient, family, RN notes reviewed, old records reviewed Mode of arrival: ambulatory Limitations: no limitations - History of Present Illness Initial comments: This is a 31-year-old female who presents emergency department stating that she tested positive yesterday for COVID and has had symptoms since Saturday. Patient states today she feels congestion in her chest she is coughing a lot and has pain in her lower thoracic region of her back. Patient also states she's been fighting a urinary tract infection with urinary frequency. Patient states she's been having a fever and some chills. Patient denies any diarrhea. Patient denies any chest pain or palpitations. Patient denies any loss of taste or smell. - Related Data Home Medications Medication Instructions Recorded Confirmed ALPRAZolam [Xanax] 0.25 mg PO Q6H PRN 02/17/18 02/17/18 Ibuprofen [Motrin Ib] 400 mg PO Q6H PRN 02/17/18 02/17/18 Allergies Allergy/AdvReac Type Severity Reaction Status Date / Time Penicillins Allergy Rash/Hives Verified 02/09/21 12:48 Review of Systems ROS Statement: Those systems with pertinent positive or pertinent negative responses have been documented in the HPI. ROS Other: All systems not noted in ROS Statement are negative. Past Medical History Past Medical History: No Reported History Additional Past Medical History / Comment(s): HEMMORHOIDS, RECTAL POLYP History of Any Multi-Drug Resistant Organisms: None Reported Past Surgical History: No Surgical Hx Reported Additional Past Surgical History / Comment(s): COLONOSCOPY, hemmeroids Past Anesthesia/Blood Transfusion Reactions: No Reported Reaction Past Psychological History: Anxiety Smoking Status: Current every day smoker Past Alcohol Use History: None Reported Past Drug Use History: None Reported - Past Family History Mother Family Medical History: No Reported History Father Family Medical History: Neurologic Disorder (brain aneurysm) Brother(s) Family Medical History: Neurologic Disorder (Flor sydnrome) Son(s) Family Medical History: No Reported History General Exam - General Exam Comments Initial Comments: GENERAL: Patient is well-developed and well-nourished. Patient is nontoxic and well- hydrated and is in mild distress. ENT: Neck is soft and supple. No significant lymphadenopathy is noted. Oropharynx is clear. Moist mucous membranes. Neck has full range of motion without eliciting any pain. EYES: The sclera were anicteric and conjunctiva were pink and moist. Extraocular movements were intact and pupils were equal round and reactive to light. Eyelids were unremarkable. PULMONARY: Unlabored respirations. Good breath sounds bilaterally. No audible rales rhonchi or wheezing was noted. CARDIOVASCULAR: There is a regular rate and rhythm without any murmurs gallops or rubs. ABDOMEN: Soft and nontender with normal bowel sounds. SKIN: Skin is clear with no lesions or rashes and otherwise unremarkable. NEUROLOGIC: Patient is alert and oriented x3. Cranial nerves II through XII are grossly intact. Motor and sensory are also intact. Normal speech, volume and content. Symmetrical smile. MUSCULOSKELETAL: Normal extremities with adequate strength and full range of motion. LYMPHATICS: No significant lymphadenopathy is noted PSYCHIATRIC: Normal psychiatric evaluation. Limitations: no limitations Course Vital Signs 02/09/21 12:48 Temperature 99 F Pulse Rate 93 Respiratory 16 Rate Blood Pressure 138/85 O2 Sat by Pulse 97 Oximetry Medical Decision Making - Medical Decision Making Chest x-ray shows no acute abnormality. New. Patient has been receiving monoclonal antibodies due to her BMI being over 35. - Lab Data Lab Results 02/09/21 Range/Units 13:35 Urine Color Yellow Urine Appearance Cloudy H (Clear) Urine pH 5.5 (5.0-8.0) Ur Specific [place] 1.025 (1.001-1.035) Urine Protein Trace H (Negative) Urine Glucose (UA) Negative (Negative) Urine Ketones 1+ H (Negative) Urine Blood Negative (Negative) Urine Nitrite Negative (Negative) Urine Bilirubin Negative (Negative) Urine Urobilinogen <2.0 (<2.0) mg/dL Ur Leukocyte Esterase Large H (Negative) Urine WBC 14 H (0-5) /hpf Ur Squamous Epith Cells 27 H (0-4) /hpf Urine Bacteria Rare H (None) /hpf Urine Mucus Moderate H (None) /hpf Disposition Clinical Impression: COVID-19 Disposition: HOME SELF-CARE Instructions (If sedation given, give patient instructions): Coronavirus Disease 2019 (COVID-19) Is patient prescribed a controlled substance at d/c from ED?: No Referrals: Jose Armando Green MD [Primary Care Provider] - 1-2 days Time of Disposition: 14:21
--- NOTE | 2021-02-09 13:55 | XR ---
EXAMINATION TYPE: XR chest 1V portable DATE OF EXAM: 02/09/2021 COMPARISON: NONE HISTORY: Fever cough shortness of breath TECHNIQUE: Single frontal view of the chest is obtained. FINDINGS: There is no focal air space opacity, pleural effusion, or pneumothorax seen. The cardiac silhouette size is within normal limits. The osseous structures are intact. IMPRESSION: No acute process.
[2021-02-09 14:13] LABS: Appearance,Urine Cloudy (Clear); Bacteria,Urine Rare /hpf; Bilirubin,Urine Negative (Negative); Blood,Urine Negative (Negative); Color,Urine Yellow; Glucose,Urine (UA) Negative (Negative); Ketones,Urine 1+ (Negative); Leukocyte Esterase,Urine Large (Negative); Mucus,Urine Moderate /hpf; Nitrite,Urine Negative (Negative); PH, Urine 5.5 (5.0-8.0); Protein,Urine Trace (Negative); Specific Gravity,Urine 1.025 (1.001-1.035); Squamous Epithelial Cell,Urine 27 /hpf (0-4); Urobilinogen,Urine <2.0 mg/dL (<2.0); WBC,Urine 14 /hpf (0-5)
[2021-02-09 14:39] VITALS: RESP 18
[2021-02-09] MEDS ORDERED: SODIUM CHLORIDE 0.9% 50 ML IVPB ONE (15:00)
[2021-02-09] MEDS ORDERED: BAMLANIVIMAB (EUA) 700 MG, ETESEVIMAB (EUA) 1,400 MG in SODIUM CHLORIDE 0.9% 50 ML IVPB ONE (15:00)
[2021-02-09 16:12] VITALS: BP 115/70; PULSE 75; TEMP 98.4
== END 2021-02-09 16:23 | disposition home or self-care (01) ==
LOC: EC 12:46
DX: U07.1 COVID-19 (principal); F41.9 Anxiety disorder, unspecified; F17.200 Nicotine dependence, unspecified, uncomplicated; Z88.0 Allergy status to penicillin
CPT/HCPCS: 81001; 87086; 87077; 87186; 71045; 99284; 96374; Q0245

== ENCOUNTER → 2022-01-24 | Outpatient (CLI) | payer MEDICAID ==
[2022-01-24 09:35] LABS: Basophils # (A) 0.04 X 10*3/uL (0.00-0.10); Basophils % (A) 0.5 %; Eosinophils % (A) 2.4 %; HCT 40.9 % (37.2-46.3); HGB 13.9 g/dL (12.0-15.0); Immature Grans, Automated 0.2 %; Lymphocytes # (A) 3.48 X 10*3/uL (0.90-5.00); MCH 30.4 pg (27.0-32.0); MCV 89.5 fL (80.0-97.0); Mean Platelet Volume 10.3 fL (9.5-12.2); Monocytes # (A) 0.74 X 10*3/uL (0.20-1.00); Monocytes % (A) 8.9 %; NRBC Per 100 WBC 0 /100 WBCS (0.0-0.0); Platelet Count 254 X 10*3/uL (140-440); RBC 4.57 X 10*6/uL (4.10-5.20); RDW 11.9 % (11.5-14.5); WBC 8.28 X 10*3/uL (4.50-10.00)
[2022-01-24 10:19] LABS: ALT 20 U/L (8-44); AST 19 U/L (13-35); African American GFR (CKD) 75.9 (60.0-200.0); Albumin 4.8 g/dL (3.8-4.9); Albumin/Globulin Ratio 2.18 (1.60-3.17); Alkaline Phosphatase 80 U/L (41-126); BUN/Creat Ratio 16.64 Ratio (12.00-20.00); Blood Urea Nitrogen 18.3 mg/dL (9.0-27.0); Calcium 9.4 mg/dL (8.7-10.3); Carbon Dioxide 21.6 mmol/L (20.0-27.5); Chloride 107 mmol/L (96-109); Globulin 2.2 g/dL (1.6-3.3); Glucose 95 mg/dL (70-110); LDL Cholesterol,Calculated 97.5 mg/dL (0.0-131.0); Non-African American GFR(CKD) 65.5 (60.0-200.0); Potassium 4.2 mmol/L (3.5-5.5); Sodium 141 mmol/L (135-145)
== END | disposition home or self-care (01) ==
LOC: LABMAIN 06:33
PROVIDERS: ATTEND Family Medicine
DX: Z00.00 Encounter for general adult medical examination without abnormal findings (principal)
CPT/HCPCS: 80053; 80061; 84439; 84443; 85025